=== PATIENT | female | born 1970 | race Caucasian/White ===

== ENCOUNTER 2016-06-21 14:59 | Emergency (ER) | payer OTHER ==
[~2016-06-21] VITALS: Ht 162.5 cm; Wt 86.6 kg
--- NOTE | ~2016-06-21 | EKG ---
[place], [place] ELECTROCARDIOGRAM REPORT NAME: REMINGTON DOMINIQUE UNIT #: [id number] ROOM: DOCTOR: SUE SIMPSON MD BIRTHDATE: [birth year] DOS: 06/21/2016 TIME: 1545 hours. FINDINGS: 1. Ectopic atrial rhythm at rate of 68. 2. Indeterminant axis with low voltage throughout. 3. Abnormal electrocardiogram. SEU SIMPSON MD CM:EKGRPT:ELECTROCARDIOGRAM REPORT [id number] SUE SIMPSON MD
[~2016-06-21 14:59] MED LIST: AMOXICILLIN500 MG PO; ATORVASTATIN CA40 M1 PO; AUGMENTIN 875875 MG PO; BACTRIM DS 8001 TA1 PO; CELEXA40 MG PO; DESYREL100 MG PO; DICLOFENAC POTA50 MG PO; DUONEB 3 MG/3 ML3 M1 NEB; FLUOCINONIDE0.05% T; HYDR12.5C PO; LEVAQUIN750 M1 PO; LISINOPRIL/HCTZ1 TA3 PO; LISINOPRIL10 M1 PO; NORFLEX100 MG PO; OXYCODONE AND A1 TAB PO; PREDNISONE10 MG PO; PREDNISONE20 MG PO; SIMVASTATIN20 MG PO; SYNTHROID0.15 MG PO; TRAMADOL HCL50 MG PO; VENTOLIN H0.09 MG/AC INH; [UNRECOGNIZED DRUG - OTHER] PO
[2016-06-21 15:11] VITALS: BP 160/83
[2016-06-21 15:46] LABS: BASO % 0.3 % (0.0-1.0); EOS # 0.2 10*3/uL (0.0-0.4); HEMOGLOBIN 13.9 g/dl (12.0-16.0); LYMPH # 2.2 10*3/uL (1.3-4.4); LYMPH % 31.7 % (27.0-41.0); MEAN CELL VOLUME 91.5 fl (81.0-99.0); MEAN CORPUSCULAR HGB CONC 33.9 g/dl (33.0-37.0); MEAN PLATELET VOLUME 9.2 fl (9.6-12.3); MONO # 0.6 10*3/uL (0.1-1.0); MONO % 8.5 % (3.0-9.0); NEUT # 3.9 10*3/uL (2.3-7.9); NEUT % 56.2 % (47.0-73.0); PLATELET COUNT AUTOMATED 234 10*3/uL (130-400); RED BLOOD COUNT 4.48 10*6/uL (4.10-5.10); RED CELL DISTRI WIDTH 12.2 % (0-14.5); WHITE BLOOD COUNT 6.9 10*3/uL (4.8-10.8)
[2016-06-21 15:56] LABS: INTERNATIONAL NORM RATIO 0.9 (2.0-3.5)
[2016-06-21 16:02] LABS: ALBUMIN 3.3 gm/dl (3.1-4.5); ALKALINE PHOSPHATASE 100 U/L (45-117); BILIRUBIN, TOTAL 0.2 mg/dl (0.2-1.0); BUN 9 mg/dl (7-24); CARBON DIOXIDE 28 mmol/L (21-32); CHLORIDE 108 mmol/L (98-107); CPK 49 U/L (26-192); EST GLOM FILT AFRICAN AMERICAN > 60 ml/min; GLUCOSE 107 mg/dL (65-99); MAGNESIUM 2.1 mg/dL (1.5-2.1); POTASSIUM 4.1 mmol/L (3.5-5.1); SGOT/AST 38 IU/L (3-35); SGPT/ALT 54 U/L (12-78); SODIUM 142 mmol/L (136-145); TOTAL PROTEIN 6.9 gm/dL (6.4-8.2)
[2016-06-21 16:04] LABS: CKMB 1.1 ng/ml (0.5-3.6)
[2016-06-21 16:07] LABS: TROPONIN I < 0.015 ng/ml (<0.045)
[2016-06-21] MEDS ORDERED: PREDNISONE10 MG PO (16:19)
[2016-06-21] MEDS ORDERED: DOXYCYCLINE100 M3 PO (16:19)
== END 2016-06-21 15:52 | disposition home or self-care (01) ==
LOC: ED 14:59
PROVIDERS: Registered Nurse
DX: J20.9 Acute bronchitis, unspecified (principal); F17.210 Nicotine dependence, cigarettes, uncomplicated; Z98.51 Tubal ligation status; Z90.710 Acquired absence of both cervix and uterus; Z98.890 Other specified postprocedural states; Z79.899 Other long term (current) drug therapy

== ENCOUNTER 2016-11-05 11:45 | Emergency (ER) | payer OTHER ==
[~2016-11-05] VITALS: Ht 162.5 cm; Wt 90.7 kg
[~2016-11-05 11:45] MED LIST changes: +DOXYCYCLINE100 M3 PO
[2016-11-05 12:02] VITALS: BP 143/100
[2016-11-05] MEDS ORDERED: ZITHROMAX250 MG PO (13:10)
[2016-11-05] MEDS ORDERED: DELTASONE20 M1 PO (13:10)
[2016-11-05] MEDS ORDERED: ROBITUSSIN AC 110 ML PO (13:10)
== END 2016-11-05 14:22 | disposition home or self-care (01) ==
LOC: ED 11:45
DX: J20.9 Acute bronchitis, unspecified (principal); J44.9 Chronic obstructive pulmonary disease, unspecified; F17.200 Nicotine dependence, unspecified, uncomplicated; Z90.710 Acquired absence of both cervix and uterus; Z98.890 Other specified postprocedural states; Z79.899 Other long term (current) drug therapy; Z98.51 Tubal ligation status

== ENCOUNTER 2016-11-16 13:34 | Emergency (ER) | payer OTHER ==
[~2016-11-16] VITALS: Ht 261.6 cm; Wt 90.7 kg
[~2016-11-16 13:34] MED LIST changes: +DELTASONE20 M1 PO; +ROBITUSSIN AC 110 ML PO; +ZITHROMAX250 MG PO
[2016-11-16 13:40] VITALS: BP 137/90
[2016-11-16] MEDS ORDERED: LEVOFLOXACIN500 MG PO (15:56)
[2016-11-16] MEDS ORDERED: DUONEB 3 MG/3 ML3 M1 INH (15:58)
== END 2016-11-16 22:06 | disposition home or self-care (01) ==
LOC: ED 13:34
DX: J44.1 Chronic obstructive pulmonary disease with (acute) exacerbation (principal); F17.200 Nicotine dependence, unspecified, uncomplicated; I10 Essential (primary) hypertension; Z90.710 Acquired absence of both cervix and uterus; Z98.890 Other specified postprocedural states; Z98.51 Tubal ligation status; Z87.01 Personal history of pneumonia (recurrent); Z79.899 Other long term (current) drug therapy

== ENCOUNTER 2016-11-29 16:01 | Emergency (ER) | payer OTHER ==
[~2016-11-29] VITALS: Ht 162.5 cm; Wt 90.3 kg
[~2016-11-29 16:01] MED LIST changes: +DUONEB 3 MG/3 ML3 M1 INH; +LEVOFLOXACIN500 MG PO
[2016-11-29 16:09] VITALS: BP 101/63
[2016-11-29] MEDS ORDERED: NAPROSYN500 MG PO (16:16)
[2016-11-29] MEDS ORDERED: KEFLEX500 M1 PO (16:16)
== END 2016-11-29 16:40 | disposition home or self-care (01) ==
LOC: ED 16:01
DX: S51.812A Laceration without foreign body of left forearm, initial encounter (principal); F17.200 Nicotine dependence, unspecified, uncomplicated; I10 Essential (primary) hypertension; J44.9 Chronic obstructive pulmonary disease, unspecified; X58.XXXA Exposure to other specified factors, initial encounter; Y93.89 Activity, other specified; Y92.9 Unspecified place or not applicable; Y99.9 Unspecified external cause status

== ENCOUNTER 2016-12-22 16:10 | Emergency (ER) | payer OTHER ==
[~2016-12-22] VITALS: Wt 87.5 kg
[~2016-12-22 16:10] MED LIST changes: +KEFLEX500 M1 PO; +NAPROSYN500 MG PO
[2016-12-22 17:35] VITALS: BP 130/70
[2016-12-22] MEDS ORDERED: CEPHALEXIN500 M1 PO (17:54)
[2016-12-22] MEDS ORDERED: NAPROSYN500 MG PO (17:54)
== END 2016-12-22 18:11 | disposition home or self-care (01) ==
LOC: ED 16:10
DX: L02.414 Cutaneous abscess of left upper limb (principal); L02.413 Cutaneous abscess of right upper limb; M25.551 Pain in right hip; F17.200 Nicotine dependence, unspecified, uncomplicated; F10.10 Alcohol abuse, uncomplicated; Z79.899 Other long term (current) drug therapy

== ENCOUNTER 2017-06-19 09:05 | Inpatient (IN) | payer OTHER ==
[~2017-06-19] VITALS: Ht 162.6 cm; Wt 95.3 kg
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
--- NOTE | ~2017-06-19 | EKG ---
[place], [place] ELECTROCARDIOGRAM REPORT NAME: REMINGTON DOMINIQUE UNIT #: [id number] ROOM: 511 DOCTOR: MIKAELA WILKINS MD,PER BIRTHDATE: [birth year] DOS: 06/19/2017 Electrocardiogram done on 06/19/2017, at 00:32 a. m. The patient showed normal sinus rhythm. Heart rate of 82 beats per minute. Left anterior fascicular block was also noted. PER AL MD CM:EKGRPT:ELECTROCARDIOGRAM REPORT [id number] PER WILKINS MD
[2017-06-19 09:05] VITALS: BP 113/71
[~2017-06-19 09:05] MED LIST changes: +CEPHALEXIN500 M1 PO
[2017-06-19 09:38] LABS: BASO % 0.5 % (0.0-1.0); EOS # 0.5 10*3/uL (0.0-0.4); EOS % 5.4 % (1.0-4.0); HEMATOCRIT 44.6 % (37.0-47.0); HEMOGLOBIN 15.1 g/dl (12.0-16.0); LYMPH # 1.8 10*3/uL (1.3-4.4); LYMPH % 21.3 % (27.0-41.0); MEAN CELL VOLUME 90.8 fl (81.0-99.0); MEAN CORPUSCULAR HGB 30.8 pg (27.0-31.0); MEAN CORPUSCULAR HGB CONC 33.9 g/dl (33.0-37.0); MEAN PLATELET VOLUME 9.1 fl (9.6-12.3); MONO % 12.1 % (3.0-9.0); NEUT % 60.5 % (47.0-73.0); PLATELET COUNT AUTOMATED 241 10*3/uL (130-400); RED BLOOD COUNT 4.91 10*6/uL (4.10-5.10); RED CELL DISTRI WIDTH 11.9 % (0-14.5); WHITE BLOOD COUNT 8.3 10*3/uL (4.8-10.8)
[2017-06-19 09:47] LABS: ACT PARTIAL THROMBO TIME 25.3 SECONDS (20.8-31.5); INTERNATIONAL NORM RATIO 0.9 (2.0-3.5)
[2017-06-19 09:55] LABS: ALBUMIN 3.7 gm/dl (3.1-4.5); ALKALINE PHOSPHATASE 156 U/L (45-117); BUN 13 mg/dl (7-24); CHLORIDE 104 mmol/L (98-107); CREATININE 0.73 mg/dL (0.55-1.02); POTASSIUM 3.6 mmol/L (3.5-5.1); SGOT/AST 57 IU/L (3-35); SGPT/ALT 108 U/L (12-78); SODIUM 137 mmol/L (136-145)
[2017-06-19 09:58] LABS: TROPONIN I < 0.015 ng/ml (<0.045)
[2017-06-19 11:26] VITALS: BP 111/79
[2017-06-19 12:00] VITALS: BP 127/78
[2017-06-19] MEDS ORDERED: ZYRTEC10 MG PO (12:32)
[2017-06-19 16:00] VITALS: BP 122/83
[2017-06-19 20:00] VITALS: BP 144/96
[2017-06-19 21:02] VITALS: BP 136/78
[2017-06-20 04:00] VITALS: BP 122/79
[2017-06-20 06:16] LABS: BASO % 0.1 % (0.0-1.0); EOS % 0.1 % (1.0-4.0); HEMATOCRIT 43.9 % (37.0-47.0); HEMOGLOBIN 14.7 g/dl (12.0-16.0); LYMPH # 1.4 10*3/uL (1.3-4.4); LYMPH % 8.8 % (27.0-41.0); MEAN CELL VOLUME 90.7 fl (81.0-99.0); MEAN CORPUSCULAR HGB 30.4 pg (27.0-31.0); MEAN CORPUSCULAR HGB CONC 33.5 g/dl (33.0-37.0); MEAN PLATELET VOLUME 9.6 fl (9.6-12.3); MONO # 0.5 10*3/uL (0.1-1.0); MONO % 2.9 % (3.0-9.0); NEUT # 13.6 10*3/uL (2.3-7.9); NEUT % 87.5 % (47.0-73.0); PLATELET COUNT AUTOMATED 267 10*3/uL (130-400); RED BLOOD COUNT 4.84 10*6/uL (4.10-5.10); RED CELL DISTRI WIDTH 11.8 % (0-14.5); WHITE BLOOD COUNT 15.5 10*3/uL (4.8-10.8)
[2017-06-20 06:30] LABS: ALBUMIN 3.5 gm/dl (3.1-4.5); BUN 15 mg/dl (7-24); CHLORIDE 101 mmol/L (98-107); CREATININE 0.66 mg/dL (0.55-1.02); PHOSPHOROUS 3.1 mg/dL (2.5-4.9); POTASSIUM 4.5 mmol/L (3.5-5.1); SGOT/AST 34 IU/L (3-35); SGPT/ALT 89 U/L (12-78); SODIUM 137 mmol/L (136-145)
[2017-06-20 06:33] LABS: ALKALINE PHOSPHATASE 150 U/L (45-117); CHOLESTEROL 155 mg/dL (<200); HDL CHOLESTEROL 58 mg/dl (40-60); LDL CHOLESTEROL 90 mg/dL (9-159); TRIGLYCERIDES 33 mg/dl (<150); VLDL CHOLESTEROL 7 mg/dL (6-40)
[2017-06-20 06:42] LABS: INTERNATIONAL NORM RATIO 0.9 (2.0-3.5)
[2017-06-20 08:00] VITALS: BP 136/88
[2017-06-20 12:00] VITALS: BP 120/80
[2017-06-20 16:00] VITALS: BP 105/61
[2017-06-20 20:00] VITALS: BP 142/95
[2017-06-21] VITALS: BP 111/54
[2017-06-21 12:00] VITALS: BP 125/74
[2017-06-21 16:00] VITALS: BP 117/74
[2017-06-22 00:13] VITALS: BP 127/86
[2017-06-22 08:00] VITALS: BP 137/83
[2017-06-22] MEDS ORDERED: PREDNISONE10 MG PO (11:44)
[2017-06-22] MEDS ORDERED: LEVOFLOXACIN500 MG PO (11:44)
[2017-06-22] MEDS ORDERED: DUONEB 3 MG/3 ML3 M1 INH (11:44)
[2017-06-22] MEDS ORDERED: ROBITUSSIN DM 101 OZ PO (11:44)
== END 2017-06-22 11:58 | disposition home or self-care (01) | DRG 189 ==
LOC: ED 09:05 → EDHOLD 11:05 → 5E 11:05
PROVIDERS: Emergency Medicine; Family Medicine
DX: J96.01 Acute respiratory failure with hypoxia (principal); D72.1 Eosinophilia; J44.0 Chronic obstructive pulmonary disease with (acute) lower respiratory infection; J44.1 Chronic obstructive pulmonary disease with (acute) exacerbation; J45.901 Unspecified asthma with (acute) exacerbation; B19.20 Unspecified viral hepatitis C without hepatic coma; M94.0 Chondrocostal junction syndrome [Tietze]; R74.0 Nonspecific elevation of levels of transaminase and lactic acid dehydrogenase [LDH]; D72.810 Lymphocytopenia; E78.5 Hyperlipidemia, unspecified; I10 Essential (primary) hypertension; F32.9 Major depressive disorder, single episode, unspecified; F17.210 Nicotine dependence, cigarettes, uncomplicated; J20.9 Acute bronchitis, unspecified; E66.9 Obesity, unspecified; E03.9 Hypothyroidism, unspecified; Z71.6 Tobacco abuse counseling; Z87.01 Personal history of pneumonia (recurrent); Z85.41 Personal history of malignant neoplasm of cervix uteri; Z90.710 Acquired absence of both cervix and uterus; Z98.51 Tubal ligation status; Z82.5 Family history of asthma and other chronic lower respiratory diseases; Z82.49 Family history of ischemic heart disease and other diseases of the circulatory system; Z79.899 Other long term (current) drug therapy; Z68.36 Body mass index [BMI] 36.0-36.9, adult

== ENCOUNTER 2017-07-29 15:43 | Emergency (ER) | payer OTHER ==
[~2017-07-29] VITALS: Ht 162.5 cm; Wt 95.3 kg
[~2017-07-29 15:43] MED LIST changes: +ROBITUSSIN DM 101 OZ PO; +ZYRTEC10 MG PO
[2017-07-29 15:44] VITALS: BP 126/90
[2017-07-29] MEDS ORDERED: NAPROSYN500 MG PO (16:04)
[2017-07-29] MEDS ORDERED: PREDNISONE10 MG PO (16:04)
== END 2017-07-29 16:59 | disposition home or self-care (01) ==
LOC: ED 15:43
DX: J20.9 Acute bronchitis, unspecified (principal); F17.200 Nicotine dependence, unspecified, uncomplicated; J44.9 Chronic obstructive pulmonary disease, unspecified; I10 Essential (primary) hypertension; E78.5 Hyperlipidemia, unspecified; E03.9 Hypothyroidism, unspecified; Z79.899 Other long term (current) drug therapy; Z98.51 Tubal ligation status; Z90.710 Acquired absence of both cervix and uterus; Z98.890 Other specified postprocedural states

== ENCOUNTER 2017-08-22 09:54 | Emergency (ER) | payer OTHER ==
[~2017-08-22] VITALS: Ht 162.5 cm; Wt 94.8 kg
[2017-08-22 09:56] VITALS: BP 156/110
[2017-08-22] MEDS ORDERED: ERYTHROMYCIN OPH1 GM OPH ×2 (10:04→10:41)
== END 2017-08-22 10:20 | disposition home or self-care (01) ==
LOC: ED 09:54
DX: H00.014 Hordeolum externum left upper eyelid (principal); J30.2 Other seasonal allergic rhinitis; F17.200 Nicotine dependence, unspecified, uncomplicated; Z98.51 Tubal ligation status; Z90.710 Acquired absence of both cervix and uterus; Z79.899 Other long term (current) drug therapy

== ENCOUNTER 2017-09-28 12:33 | Emergency (ER) | payer OTHER ==
[~2017-09-28] VITALS: Ht 162.5 cm; Wt 95.3 kg
[~2017-09-28 12:33] MED LIST changes: +ERYTHROMYCIN OPH1 GM OPH
[2017-09-28 12:35] VITALS: BP 142/80
[2017-09-28] MEDS ORDERED: Motrin,Rufen800 MG PO (13:38)
== END 2017-09-28 13:41 | disposition home or self-care (01) ==
LOC: ED 12:33
DX: S60.221A Contusion of right hand, initial encounter (principal); J44.9 Chronic obstructive pulmonary disease, unspecified; I10 Essential (primary) hypertension; E78.5 Hyperlipidemia, unspecified; E03.9 Hypothyroidism, unspecified; F17.200 Nicotine dependence, unspecified, uncomplicated; Z90.710 Acquired absence of both cervix and uterus; Z98.51 Tubal ligation status; Z79.2 Long term (current) use of antibiotics; Z79.899 Other long term (current) drug therapy; W22.8XXA Striking against or struck by other objects, initial encounter; Y93.89 Activity, other specified; Y92.89 Other specified places as the place of occurrence of the external cause; Y99.8 Other external cause status

== ENCOUNTER 2017-11-11 11:36 | Emergency (ER) | payer OTHER ==
[~2017-11-11] VITALS: Wt 94.8 kg
[2017-11-11 11:36] VITALS: BP 158/96
[~2017-11-11 11:36] MED LIST changes: +Motrin,Rufen800 MG PO
[2017-11-11] MEDS ORDERED: OMNICEF300 MG PO (11:47)
[2017-11-11] MEDS ORDERED: CLARITIN10 MG PO (11:47)
[2017-11-11] MEDS ORDERED: FLONASE ALLERG9.9 ML NAS (11:47)
[2017-11-11] MEDS ORDERED: PREDNISONE10 MG PO (11:47)
[2018-01-17] MEDS ORDERED: PROAIR HFA8.5 GM INH (12:24)
[2018-01-17] MEDS ORDERED: PREDNISONE10 MG PO (12:24)
[2018-01-17] MEDS ORDERED: Ipratropium Brom3 ML INH (12:24)
[2018-01-17] MEDS ORDERED: CHLORZOXAZONE500 M2 PO (13:10)
== END 2017-11-11 11:58 | disposition home or self-care (01) ==
LOC: ED 11:36
DX: J20.9 Acute bronchitis, unspecified (principal); I10 Essential (primary) hypertension; J44.9 Chronic obstructive pulmonary disease, unspecified; E78.5 Hyperlipidemia, unspecified; E03.9 Hypothyroidism, unspecified; F17.200 Nicotine dependence, unspecified, uncomplicated; Z79.899 Other long term (current) drug therapy; Z90.710 Acquired absence of both cervix and uterus; Z98.51 Tubal ligation status

== ENCOUNTER 2018-03-14 16:18 | Emergency (ER) | payer OTHER ==
[~2018-03-14 16:18] MED LIST changes: +CHLORZOXAZONE500 M2 PO; +CLARITIN10 MG PO; +FLONASE ALLERG9.9 ML NAS; +Ipratropium Brom3 ML INH; +OMNICEF300 MG PO; +PROAIR HFA8.5 GM INH
[2018-03-14 16:19] VITALS: BP 116/81
[2018-03-14 16:59] LABS: BILIRUBIN NEGATIVE (NEGATIVE); BLOOD 3+ (NEGATIVE); CLARITY CLOUDY (CLEAR); COLOR YELLOW (YELLOW); GLUCOSE NEGATIVE (NEGATIVE); KETONE NEGATIVE (NEGATIVE); LEUKO ESTERASE 3+ (NEGATIVE); NITRITE POSITIVE (NEGATIVE); UROBILINOGEN 0.2 E.U./dl (0.2-1.0)
[2018-03-14 17:08] LABS: BACTERIA 2+; WBC TNTC wbc/hpf (0-5)
[2018-03-14 17:23] LABS: BASO # 0.1 10*3/uL (0.0-0.1); BASO % 0.4 % (0.0-1.0); EOS # 0.1 10*3/uL (0.0-0.4); EOS % 0.4 % (1.0-4.0); HEMATOCRIT 41.6 % (37.0-47.0); LYMPH # 1.8 10*3/uL (1.3-4.4); LYMPH % 11.4 % (27.0-41.0); MEAN CELL VOLUME 97.7 fl (81.0-99.0); MEAN CORPUSCULAR HGB 32.9 pg (27.0-31.0); MEAN CORPUSCULAR HGB CONC 33.7 g/dl (33.0-37.0); MEAN PLATELET VOLUME 9.2 fl (9.6-12.3); MONO % 6.4 % (3.0-9.0); NEUT # 12.9 10*3/uL (2.3-7.9); NEUT % 81.1 % (47.0-73.0); PLATELET COUNT AUTOMATED 217 10*3/uL (130-400); RED BLOOD COUNT 4.26 10*6/uL (4.10-5.10)
[2018-03-14 17:39] LABS: ALBUMIN 3.8 gm/dl (3.1-4.5); ALKALINE PHOSPHATASE 128 U/L (45-117); BUN 15 mg/dl (7-24); CHLORIDE 102 mmol/L (98-107); CREATININE 1.12 mg/dL (0.55-1.02); LIPASE 93 U/L (73-393); POTASSIUM 4.1 mmol/L (3.5-5.1); SGOT/AST 63 IU/L (3-35); SGPT/ALT 88 U/L (12-78); SODIUM 138 mmol/L (136-145)
[2018-03-14] MEDS ORDERED: SEPTDS PO (19:06)
[2018-03-14] MEDS ORDERED: PYRIDIUM200 M1 PO (19:08)
[2018-05-13] MEDS ORDERED: PREDNISONE20 M1 PO (14:49)
[2018-05-13] MEDS ORDERED: PROVENTIL HFA6.7 GM INH (14:49)
[2018-05-13] MEDS ORDERED: SEPTDS PO (14:49)
== END 2018-03-14 19:11 | disposition home or self-care (01) ==
LOC: ED 16:18
PROVIDERS: Nurse Practitioner Family
DX: N30.90 Cystitis, unspecified without hematuria (principal); I10 Essential (primary) hypertension; J44.9 Chronic obstructive pulmonary disease, unspecified; E78.5 Hyperlipidemia, unspecified; E03.9 Hypothyroidism, unspecified; F17.200 Nicotine dependence, unspecified, uncomplicated; Z79.899 Other long term (current) drug therapy; Z90.710 Acquired absence of both cervix and uterus

== ENCOUNTER 2019-09-29 09:10 | Emergency (ER) | payer OTHER ==
[~2019-09-29] VITALS: Ht 162.5 cm; Wt 95.3 kg
[~2019-09-29 09:10] MED LIST changes: +PREDNISONE20 M1 PO; +PROVENTIL HFA6.7 GM INH; +PYRIDIUM200 M1 PO; +SEPTDS PO
[2019-09-29 09:24] VITALS: BP 129/80
[2019-09-29] MEDS ORDERED: SEPTDS PO ×3 (10:04→10:34)
[2019-09-29] MEDS ORDERED: CEPHALEXIN500 M1 PO ×3 (10:04→10:34)
[2019-09-30] MEDS ORDERED: ELIMITE 5%60 GM T (10:30)
[2019-09-30] MEDS ORDERED: VISTARIL25 MG PO (10:30)
== END 2019-09-29 10:16 | disposition home or self-care (01) ==
LOC: ED 09:10
DX: R21 Rash and other nonspecific skin eruption (principal); J45.909 Unspecified asthma, uncomplicated; I10 Essential (primary) hypertension; F17.200 Nicotine dependence, unspecified, uncomplicated; Z79.899 Other long term (current) drug therapy; Z90.710 Acquired absence of both cervix and uterus

== ENCOUNTER 2019-09-30 09:29 | Emergency (ER) | payer OTHER ==
[~2019-09-30] VITALS: Ht 162.5 cm; Wt 95.3 kg
[2019-09-30 09:46] VITALS: BP 129/107
[2019-09-30] MEDS ORDERED: VISTARIL25 MG PO (10:30)
[2019-09-30] MEDS ORDERED: ELIMITE 5%60 GM T (10:30)
== END 2019-09-30 10:36 | disposition home or self-care (01) ==
LOC: ED 09:29
DX: L29.9 Pruritus, unspecified (principal); Z79.899 Other long term (current) drug therapy

== ENCOUNTER 2022-02-14 14:12 | Emergency (ER) | payer OTHER ==
[~2022-02-14] VITALS: Ht 162.5 cm; Wt 83.9 kg
[~2022-02-14 14:12] MED LIST changes: +ELIMITE 5%60 GM T; +VISTARIL25 MG PO
[2022-02-14 14:25] VITALS: BP 138/88
[2022-02-14] MEDS ORDERED: FLUONAZOLE100 M1 PO (16:00)
[2022-02-14] MEDS ORDERED: ATARAX,VISTARIL50 MG PO (16:00)
== END 2022-02-14 16:30 | disposition home or self-care (01) ==
LOC: ED 14:12
DX: B36.0 Pityriasis versicolor (principal); Z79.899 Other long term (current) drug therapy; Z98.890 Other specified postprocedural states; Z90.710 Acquired absence of both cervix and uterus; Z98.51 Tubal ligation status; Z87.891 Personal history of nicotine dependence

== ENCOUNTER 2022-09-30 20:15 | Emergency (ER) | payer OTHER ==
[~2022-09-30 20:15] MED LIST changes: +ATARAX,VISTARIL50 MG PO; +FLUONAZOLE100 M1 PO
[2022-09-30] MEDS ORDERED: VIBRAMYCIN100 MG PO (21:03)
== END 2022-09-30 20:41 | disposition left against medical advice (07) ==
LOC: ED 20:15
DX: L08.9 Local infection of the skin and subcutaneous tissue, unspecified (principal); Z53.21 Procedure and treatment not carried out due to patient leaving prior to being seen by health care provider

== ENCOUNTER 2022-09-30 20:48 | Emergency (ER) | payer OTHER ==
[2022-09-30 20:58] VITALS: BP 149/91
[2022-09-30] MEDS ORDERED: VIBRAMYCIN100 MG PO (21:03)
== END 2022-09-30 21:26 | disposition home or self-care (01) ==
LOC: ED 20:48
DX: F42.4 Excoriation (skin-picking) disorder (principal); F17.200 Nicotine dependence, unspecified, uncomplicated; Z79.899 Other long term (current) drug therapy; Z79.2 Long term (current) use of antibiotics; Z98.890 Other specified postprocedural states; Z90.711 Acquired absence of uterus with remaining cervical stump; Z98.51 Tubal ligation status

== ENCOUNTER 2024-09-15 16:23 | Emergency (ER) | payer OTHER ==
[~2024-09-15] VITALS: Ht 162.5 cm; Wt 103.9 kg
[~2024-09-15 16:23] MED LIST changes: +VIBRAMYCIN100 MG PO
[2024-09-15 16:30] VITALS: BP 157/101
[2024-09-15] MEDS ORDERED: MAGNESIUM CITRATE 296 ML BOT PO ONE (17:45)
[2024-09-15] MEDS ORDERED: Motrin,Rufen800 MG PO (17:46)
== END 2024-09-15 18:32 | disposition home or self-care (01) ==
LOC: ED 16:23
DX: S82.831A Other fracture of upper and lower end of right fibula, initial encounter for closed fracture (principal); J44.9 Chronic obstructive pulmonary disease, unspecified; E78.5 Hyperlipidemia, unspecified; I10 Essential (primary) hypertension; Z86.19 Personal history of other infectious and parasitic diseases; Z90.710 Acquired absence of both cervix and uterus; Z98.890 Other specified postprocedural states; X58.XXXA Exposure to other specified factors, initial encounter; Y93.89 Activity, other specified; Y92.89 Other specified places as the place of occurrence of the external cause; Y99.8 Other external cause status